=== PATIENT | female | born 1945 | race Caucasian/White ===

== ENCOUNTER 2018-06-05 15:06 | Emergency (ER) | payer MEDICARE ==
[~2018-06-05] VITALS: Ht 157.5 cm; Wt 48.0 kg
[2018-06-05 15:11] VITALS: BP 127/67
[2018-06-05 16:46] LABS: BASOPHILS % 0.7 % (0.0-2.0); EOSINOPHILS % 0.5 % (0.0-5.0); HEMATOCRIT. 40.8 % (36.0-48.0); HEMOGLOBIN. 13.7 g/dL (12.0-16.0); LYMPHOCYTES % 16.4 % (20.0-50.0); MEAN CORPUSCULAR HEMOGLOBIN 31.1 pg (28.0-32.0); MEAN CORPUSCULAR VOLUME 92.9 fL (81.0-99.0); MEAN PLATELET VOLUME 8.8 fl (7.4-10.4); MONOCYTES % 5.8 % (2.0-8.0); NEUTROPHILS % 76.6 % (40.0-76.0); PLATELET 191 x1000/uL (130-400); RED CELL DISTRIBUTION WIDTH 14.6 % (11.6-14.6)
[2018-06-05 16:50] LABS: CHLORIDE 103 mEq/L (98-107)
[2018-06-05 16:55] LABS: ETHANOL BLOOD < 10 mg/dL
== END 2018-06-05 19:05 | disposition home or self-care (01) ==
LOC: ER 15:06
DX: E11.65 Type 2 diabetes mellitus with hyperglycemia (principal); I10 Essential (primary) hypertension
CPT/HCPCS: 36415; 71045; 80320; 82010; 84484; 99284; G0480